=== PATIENT | male | born 2000 | race Caucasian/White ===

== ENCOUNTER 2018-08-18 04:33 | Emergency (ER) | payer OTHER ==
[2018-08-18] MEDS: LEVETIRACETAM 1000 MG (PMX) 100 ML IVPB (05:08)
== END 2018-08-18 07:45 | disposition home or self-care (01) ==
LOC: E/R 04:33
DX: G40.909 Epilepsy, unspecified, not intractable, without status epilepticus (principal); S00.83XA Contusion of other part of head, initial encounter; X58.XXXA Exposure to other specified factors, initial encounter; Y92.009 Unspecified place in unspecified non-institutional (private) residence as the place of occurrence of the external cause
CPT/HCPCS: 70450; 96374; 99285-25